=== PATIENT | male | born 1985 | race Caucasian/White ===

== ENCOUNTER 2018-10-09 12:16 | Inpatient (IN) ==
[2018-10-09] MEDS: LORazepam 1 MG TABLET PO SCH ×3 (13:13→20:30)
[2018-10-09] MEDS: chlordiazePOXIDE 25 MG CAPSULE PO SCH ×2 (13:13→19:38)
[2018-10-09 13:29] LABS: Basophils % 1.1 % (0.0-0.8); Eosinophils # 0.2 10*3/uL (0.0-0.87); Eosinophils % 4.5 % (0.00-10.9); Hematocrit 44.3 VOL% (42.0-52.0); Hemoglobin 14.2 GM/DL (14.0-18.0); Immature Granulocytes % 0.3 %; Immature Granulocytes Absolute 0.01 #; Lymphocytes # 1.2 10*3/uL (1.4-4.0); Lymphocytes % 30.9 % (21.2-54.2); Mean Corpuscular HGB Conc 32.1 GM/DL (32-36); Mean Platelet Volume 9.1 FL (9.6-12.0); Monocytes % 8.4 % (1.7-12.7); Neutrophils % 54.8 % (38.7-73.9); Platelet Count 248 T/CUMM (130-400); Red Blood Count 4.43 MC/CUMM (3.8-5.5); Red Cell Distribution Width 13.7 % (9.3-17.3); White Blood Count 3.8 T/CUMM (4-12)
[2018-10-09 13:52] LABS: Albumin 3.5 G/DL (3.4-5.0); Bilirubin,Total 0.4 MG/DL (0.2-1.0); Calcium 8.2 MG/DL (8.5-10.1); Osmolality,Calculated 281.1 MOS/KG (273-304); Total Protein 6.3 G/DL (6.4-8.3)
[2018-10-09] MEDS ORDERED: THIAMINE INJ 100 MG, FOLIC ACID INJ 1 MG, MULTIVITAMIN INJ 10 ML in SODIUM CHLORIDE 0.9... IV ONE (14:00)
[2018-10-09] MEDS ORDERED: ONDANSETRON 4 MG/2 ML VIAL IV PRN (14:46)
[2018-10-10] MEDS: METHOCARBAMOL 750 MG TABLET PO PRN ×3 (00:42→20:09)
[2018-10-10] MEDS: LORazepam 1 MG TABLET PO SCH ×5 (00:42→18:18)
[2018-10-10] MEDS: chlordiazePOXIDE 25 MG CAPSULE PO SCH ×4 (00:46→20:09)
[2018-10-10 05:04] LABS: Basophils % 0.5 % (0.0-0.8); Eosinophils # 0.1 10*3/uL (0.0-0.87); Hemoglobin 13.4 GM/DL (14.0-18.0); Immature Granulocytes % 0.2 %; Immature Granulocytes Absolute 0.01 #; Lymphocytes # 1.7 10*3/uL (1.4-4.0); Lymphocytes % 42.6 % (21.2-54.2); Mean Corpuscular HGB Conc 33.5 GM/DL (32-36); Mean Corpuscular Volume 98.3 FL (87-102); Mean Platelet Volume 9.8 FL (9.6-12.0); Monocytes % 7.5 % (1.7-12.7); Neutrophils % 46.2 % (38.7-73.9); Platelet Count 221 T/CUMM (130-400); Red Blood Count 4.07 MC/CUMM (3.8-5.5); Red Cell Distribution Width 13.3 % (9.3-17.3)
[2018-10-10 05:28] LABS: Albumin 3.2 G/DL (3.4-5.0); Osmolality,Calculated 279.4 MOS/KG (273-304); Risk Ratio 2.31; Thyroid Stimulating Hormone 1.17 uIU/ml (0.358-3.74); Total Protein 5.8 G/DL (6.4-8.3); VLDL CHOLESTEROL 25.8 MG/DL
[2018-10-10] MEDS ORDERED: POTASSIUM CHLORIDE 20 MEQ TABLET PO PRN (07:44)
[2018-10-10] MEDS: FAMOTIDINE 20 MG/2 ML VIAL IV SCH ×2 (08:39→20:02)
[2018-10-10] MEDS ORDERED: PANTOPRAZOLE 40 MG TABLET PO SCH (09:00)
[2018-10-10] MEDS ORDERED: DOCUSATE SODIUM 100 MG CAPSULE PO PRN (10:12)
[2018-10-10] MEDS ORDERED: THIAMINE INJ 100 MG, FOLIC ACID INJ 1 MG, MULTIVITAMIN INJ 10 ML in SODIUM CHLORIDE 0.9... IV SCH (11:00)
[2018-10-11] MEDS: LORazepam 1 MG TABLET PO SCH ×2 (01:20→06:02)
[2018-10-11] MEDS: METHOCARBAMOL 750 MG TABLET PO PRN (01:53)
[2018-10-11] MEDS: chlordiazePOXIDE 25 MG CAPSULE PO SCH (05:22)
[2018-10-11 05:49] LABS: Basophils % 0.5 % (0.0-0.8); Eosinophils # 0.1 10*3/uL (0.0-0.87); Eosinophils % 2.5 % (0.00-10.9); Hematocrit 41.8 VOL% (42.0-52.0); Immature Granulocytes % 0.3 %; Immature Granulocytes Absolute 0.01 #; Lymphocytes # 1.5 10*3/uL (1.4-4.0); Lymphocytes % 36.4 % (21.2-54.2); Mean Corpuscular HGB Conc 33.5 GM/DL (32-36); Mean Corpuscular Volume 98.6 FL (87-102); Mean Platelet Volume 10.1 FL (9.6-12.0); Monocytes % 8.8 % (1.7-12.7); Neutrophils % 51.5 % (38.7-73.9); Platelet Count 208 T/CUMM (130-400); Red Blood Count 4.24 MC/CUMM (3.8-5.5); Red Cell Distribution Width 13.3 % (9.3-17.3)
[2018-10-11 06:23] LABS: Albumin 3.2 G/DL (3.4-5.0); Bilirubin,Total 0.6 MG/DL (0.2-1.0); Calcium 8.6 MG/DL (8.5-10.1); Osmolality,Calculated 278.4 MOS/KG (273-304)
[2018-10-11] MEDS ORDERED: POTASSIUM CHLORIDE 20 MEQ TABLET PO ONE (09:41)
[2018-10-11] MEDS: FAMOTIDINE 20 MG/2 ML VIAL IV SCH (09:58)
[2018-10-11 12:31] VITALS: BP 125/72
== END 2018-10-11 15:30 | disposition home or self-care (01) | DRG 897 ==
LOC: N.4E 12:36
PROVIDERS: ADMIT Internal Medicine; ATTEND Internal Medicine